=== PATIENT | female | born 1970 | race Caucasian/White ===

== ENCOUNTER 2018-05-01 20:22 | Emergency (ER) | payer OTHER ==
[2018-05-01 20:40] VITALS: BP 145/82; PULSE 95; TEMP 98.1; BMI 30.1
--- NOTE | 2018-05-01 20:41 | PDOC ---
Rapid Medical Evaluation Time Seen by Provider: 05/01/18 20:36 Medical Evaluation: 05/01/18 20:36 I have performed a brief in-person evaluation of this patient. The patient presents with a chief complaint of: right shoulder pain since Saturday. States since yesterday pain in right shoulder worse making it hard to lift arm Pertinent physical exam findings are NAD even and unlabored breathing right shoulder tender, pain with abduction and adduction I have ordered the following: urine , xray of shoulder The patient will proceed to Ed for further evaluation Discharge Disposition - Referrals Referrals: Emil Purcell MD [Primary Care Provider] - - Patient Instructions - Post Discharge Activity
[2018-05-01] MEDS ORDERED: IBUPROFEN 600 MG TABLET (FP) PO ONE (20:42)
--- NOTE | 2018-05-01 21:02 | PDOC ---
History of Present Illness - General Chief Complaint: Pain, Acute Stated Complaint: SHOULDER PAIN Time Seen by Provider: 05/01/18 20:36 History Source: Patient Exam Limitations: No Limitations - History of Present Illness Initial Comments: Patient is a 47-year-old female who states on Saturday she fell out of her car onto her right shoulder. She denies hitting her head and denies LOC. She now complains of right anterior shoulder pain. She describes as a throb, worse with movement and rates it a 5 out of 10. She denies attempting over-the- counter analgesics. She denies upper extremity paresthesia. Denies any relieving factors. 05/01/18 21:00 Past History - Travel Traveled outside of the country in the last 30 days: No Close contact w/someone who was outside of country & ill: No - Past Medical History Allergies/Adverse Reactions: Allergies Allergy/AdvReac Type Severity Reaction Status Date / Time No Known Allergies Allergy Verified 05/01/18 20:40 Home Medications: Ambulatory Orders NK [No Known Home Medication] 05/01/18 - Suicide/Smoking/Psychosocial Hx Smoking History: Never smoked Have you smoked in the past 12 months: No Information on smoking cessation initiated: No Hx Alcohol Use: No Drug/Substance Use Hx: No Review of Systems - Review of Systems Able to Perform ROS?: Yes All Other Systems: Reviewed and Negative *Physical Exam - Vital Signs Last Vital Signs Temp Pulse Resp BP Pulse Ox 98.1 F 95 H 18 145/82 100 05/01/18 20:37 05/01/18 20:37 05/01/18 20:37 05/01/18 20:37 05/01/18 20:37 - Physical Exam Comments: Constitutional: VS stated, pt appears in no apparent distress; sitting in chair. Skin: Warm and dry. Intact, no lesions or excoriations. Head: Normocephalic; atraumatic Eyes: Extraocular movements intact, PERRL, conjunctiva pink without injection or discharge. Lids normal; no periorbital edema or erythema. Vision subjectively normal or at baseline. Throat: Oropharynx with pink and moist mucosa. Lungs: Bilateral breath sounds clear upon auscultation. No adventitious breath sounds. Heart: Regular rate and rhythm, S1/S2 auscultated. No murmurs, rubs, or gallops. No visible pulsations, heaves, or lifts on precordium. Musculoskeletal: Moves all extremities without difficulty. Neurologic: Awake, alert. Conversation fluent. Normal attention. Psychiatric: Appropriate affect. 05/01/18 21:01 ED Treatment Course - RADIOLOGY Radiology Studies Ordered: 05/01/18 21:02 Pt's right shoulder xray was reviewed by myself as negative. Pt given a sling. 05/01/18 21:24 - Medications Given in the ED: ED Medications Discontinued Medications Generic Name Dose Route Start Last Admin Trade Name Kyrie PRN Reason Stop Dose Admin Ibuprofen 600 mg 05/01/18 20:42 05/01/18 20:43 Motrin - PO 05/01/18 20:43 600 mg ONCE ONE Administration *DC/Admit/Observation/Transfer Diagnosis at time of Disposition: Shoulder sprain Qualifiers: Encounter type: initial encounter Shoulder sprain type: other part of shoulder region Laterality: right Qualified Code(s): S43.491A - Other sprain of right shoulder joint, initial encounter - Discharge Dispostion Disposition: HOME Condition at time of disposition: Stable Decision to Admit order: No - Referrals Referrals: Emil Purcell MD [Primary Care Provider] - - Patient Instructions Printed Discharge Instructions: How to Use a Sling Additional Instructions: Sling on for comfort measures. Alternate Tylenol 650 mg every 4 hours and ibuprofen 600 mg every 6 hours. Follow-up with your family doctor for worsening symptoms. - Post Discharge Activity Forms/Work/School Notes: Back to Work
== END 2018-05-01 21:30 | disposition home or self-care (01) ==
LOC: JERFT 20:22
DX: S43.491A Other sprain of right shoulder joint, initial encounter (principal); V48.4XXA Person boarding or alighting a car injured in noncollision transport accident, initial encounter; Y92.488 Other paved roadways as the place of occurrence of the external cause; Y93.89 Activity, other specified; Y99.8 Other external cause status
CPT/HCPCS: 73030-TC-RT-FY; 84703; 99281-25